=== PATIENT | female | born 1965 | race Caucasian/White ===

== ENCOUNTER 2019-05-13 07:51 | Day surgery (SDC) | payer BC ==
[2019-05-13] MEDS ORDERED: FENTANYL PF 100MCG/2ML VIAL IV ONE (07:52)
[2019-05-13] MEDS ORDERED: PROPOFOL 10 MG/ML VIAL IV ONE (07:52)
[2019-05-13] MEDS ORDERED: LIDOCAINE 2% MDV (20MG/ML) 20ML VIAL IV ONE (07:52)
--- NOTE | 2019-05-23 08:40 | Operative Note ---
SURGEON: Ignacio Hernadez MD OPERATION: 1. ESOPHAGOGASTRODUODENOSCOPY. 2. COLONOSCOPY. INDICATIONS: This is a 53-year-old female with history of gastroesophageal reflux disease and average risk for colorectal cancer who presented for both esophagogastroduodenoscopy and colonoscopy. POSTOPERATIVE DIAGNOSES: 1. LA grade C esophagitis. 2. Mild gastritis. 3. Normal duodenum. 4. A 6 mm sessile polyp in the ascending colon that was removed by cold snare. 5. A 3 mm sessile polyp in the transverse colon that was removed by cold biopsy forceps. 6. Otherwise normal colon. ANESTHESIA: Sedation is per Anesthesia. Pulse oximetry was monitored throughout the procedure to maintain O2 saturation of 90% or greater. Supplemental oxygen was administered via nasal cannula. Cardiac and vital signs were monitored throughout the duration of the procedure, and they were stable. The procedures of esophagogastroduodenoscopy and colonoscopy and risks and benefits of the procedures, including the risk of bleeding and perforation, among others, were explained to the patient who voiced understanding and agreed to have the procedures done. Physical examination was performed, and the patient was found stable for sedation. PROCEDURE: The patient was placed in the left lateral position. Sedation was initiated. A plastic bite block was inserted into the oral cavity. The Olympus [id number] gastroscope was introduced into the oral cavity and advanced to the proximal esophagus without difficulty. The esophageal mucosa was carefully examined upon introduction of the gastroscope. The proximal and mid esophageal mucosa appeared normal. In the distal esophagus was LA class C esophagitis with no strictures. The gastroscope was then advanced into the stomach, and surveillance of the stomach revealed normal gastric fundus with mild erythema along the gastric body and antrum but no ulcers were noted. The gastroscope was then advanced to the descending duodenum without difficulty. The duodenal bulb and descending duodenum appeared normal. The gastroscope was then withdrawn into the stomach and retroflexion was performed. There were no other lesions. The gastroscope was then straightened and withdrawn while carefully examining the gastric and esophageal mucosa. No other lesions noted. Multiple gastric and distal esophageal biopsies were obtained. The patient remained with stable vital signs and was repositioned for colonoscopy. A digital rectal exam was performed and showed some mild external hemorrhoids with no palpable rectal masses. An Olympus [id number]-180AL colonoscope was then inserted into the rectum under direct visualization. It was advanced to the cecum with moderate difficulty. The difficulty was due to redundancy of the sigmoid colon requiring external abdominal wall compression and changing patient position as well as change of scope. The colonic mucosa was carefully examined upon introduction of the colonoscope. There was a 6 mm sessile polyp in the transverse colon that was noted and was removed by cold snare. There were no other lesions noted. The colonoscope was then withdrawn while carefully examining the colonic mucosal surfaces. No other lesions were noted in the cecum or ascending colon. In the transverse colon was a 3 mm sessile polyp that was noted and was removed by cold biopsy forceps. There were no other lesions. In the rectum, retroflexion was performed and grade 1 internal hemorrhoids were noted. The colonoscope was then withdrawn and the procedure was terminated. The patient tolerated the procedure well without any immediate complications. The patient remained with stable vital signs and was transferred to the recovery room. RECOMMENDATIONS: 1. The patient should be on a high-fiber diet. 2. The patient is to have a repeat colonoscopy for surveillance in 5 or 10 years depending on the histology of the polyps. Thank you for allowing me to participate in the care of your patient. MARIEL
== END 2019-05-13 10:17 | disposition home or self-care (01) ==
LOC: HOP 07:51
PROVIDERS: ATTEND Internal Medicine Gastroenterology
DX: Z12.11 Encounter for screening for malignant neoplasm of colon (principal); D12.4 Benign neoplasm of descending colon; D12.2 Benign neoplasm of ascending colon; K21.0 Gastro-esophageal reflux disease with esophagitis; R13.10 Dysphagia, unspecified; Z79.899 Other long term (current) drug therapy; I10 Essential (primary) hypertension; E03.9 Hypothyroidism, unspecified
CPT/HCPCS: 45385; 45380; 43202; 00813; J3010

== ENCOUNTER 2019-05-18 18:58 | Emergency (ER) | payer BC ==
[2019-05-18] MEDS ORDERED: SILVER SULFADIAZINE 25 GM CREAM TOP ONE (19:30)
[2019-05-18] MEDS ORDERED: HYDROCODONE/APAP 5/325MG TABLET PO ONE (19:35)
[2019-05-18] MEDS ORDERED: IBUPROFEN 600 MG TABLET PO ONE (19:35)
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
== END 2019-05-18 20:16 | disposition home or self-care (01) ==
LOC: ER 18:58
DX: T23.112A Burn of first degree of left thumb (nail), initial encounter (principal); X10.2XXA Contact with fats and cooking oils, initial encounter
CPT/HCPCS: 99283